=== PATIENT | female | born 1975 | race Caucasian/White ===

== ENCOUNTER → 2017-03-17 | Emergency (ER) | payer OTHER ==
[2017-03-17 15:35] VITALS: BP 135/92; PULSE 92; TEMP 97.5; BMI 25.7
--- NOTE | 2017-03-17 17:33 | PDOC ---
History of Present Illness - General History Source: Patient Exam Limitations: No Limitations - History of Present Illness Initial Comments: 03/17/17 18:13 The patient is a 41-year-old female, with a significant past medical history of seizure disorder (on Keppra 750 mg 2x a day), who presents to the ED today s/p having a seizure at work. Pt was said to be sitting down and unresponsive when she suddenly began shaking. Seizure was witness by coworkers who lowered the pt to the floor and called EMS. Episode lasted 2-3 minutes. Pt denies any bowel or bladder incontinence, new weakness, or recent changes to her medication, but does report experiencing a mild headache. Pts last seizure was four months ago. She reports having a recent EEG that was said to be normal. The patient denies any fever, chills, nausea, vomiting, diarrhea, or abdominal pain. Denies any shortness of breath or chest pain. Neurologist: Dr. David Fatiam <Rena Yao - Last Filed: 03/17/17 18:13> <Beryl Eden - Last Filed: 03/17/17 18:46> - General Chief Complaint: Seizure Stated Complaint: SEIZURE Time Seen by Provider: 03/17/17 15:44 Past History <Rena Yao - Last Filed: 03/17/17 18:13> - Past Medical History Seizures: Yes - Psycho/Social/Smoking Cessation Hx Anxiety: No Suicidal Ideation: No Smoking History: Never smoked Information on smoking cessation initiated: No Hx Alcohol Use: No Drug/Substance Use Hx: No Substance Use Type: None <Beryl Eden - Last Filed: 03/17/17 18:46> - Past Medical History Allergies/Adverse Reactions: Allergies Allergy/AdvReac Type Severity Reaction Status Date / Time No Known Allergies Allergy Verified 10/18/16 15:59 Home Medications: Ambulatory Orders NK [No Known Home Medication] 10/18/16 Review of Systems - Review of Systems Able to Perform ROS?: Yes Comments:: 03/17/17 18:13 GENERAL/CONSTITUTIONAL: No fever or chills. No weakness. HEAD, EYES, EARS, NOSE AND THROAT: No change in vision. No ear pain or discharge. No sore throat. CARDIOVASCULAR: No chest pain or shortness of breath. RESPIRATORY: No cough, wheezing, or hemoptysis. GASTROINTESTINAL: No nausea, vomiting, diarrhea or constipation. GENITOURINARY: No dysuria, frequency, or change in urination. MUSCULOSKELETAL: No joint or muscle swelling or pain. No neck or back pain. SKIN: No rash NEUROLOGIC: No change in strength/sensation. (+)Seizure, headache ENDOCRINE: No increased thirst. No abnormal weight change. HEMATOLOGIC/LYMPHATIC: No anemia, easy bleeding, or history of blood clots. ALLERGIC/IMMUNOLOGIC: No hives or skin allergy. <MaximilianRena - Last Filed: 03/17/17 18:13> *Physical Exam - Vital Signs Last Vital Signs Temp Pulse Resp BP Pulse Ox 97.5 F L 92 H 20 135/92 96 03/17/17 15:32 03/17/17 15:32 03/17/17 15:32 03/17/17 15:32 03/17/17 15:32 - Physical Exam Comments: 03/17/17 18:17 GENERAL: Awake, alert, and fully oriented, in no acute distress HEAD: No signs of trauma EYES: PERRLA, EOMI, sclera anicteric, conjunctiva clear ENT: Auricles normal inspection, hearing grossly normal, nares patent, oropharynx clear without exudates. Moist mucosa. NECK: Normal ROM, supple, no lymphadenopathy, JVD, or masses LUNGS: Breath sounds equal, clear to auscultation bilaterally. No wheezes, and no crackles HEART: Regular rate and rhythm, normal S1 and S2, no murmurs, rubs or gallops ABDOMEN: Soft, nontender, normoactive bowel sounds. No guarding, no rebound. No masses EXTREMITIES: Normal range of motion, no edema. No clubbing or cyanosis. No cords, erythema, or tenderness NEUROLOGICAL: Awake, Alert at baseline. 5/5 strength all four extremities. cranial nerves intact. Sensation intact. SKIN: Warm, Dry, normal turgor, no rashes or lesions noted <MaximilianRena - Last Filed: 03/17/17 18:13> - Vital Signs Last Vital Signs Temp Pulse Resp BP Pulse Ox 97.5 F L 92 H 20 135/92 96 03/17/17 15:32 03/17/17 15:32 03/17/17 15:32 03/17/17 15:32 03/17/17 15:32 <Cirilli,Beryl - Last Filed: 03/17/17 18:46> ED Treatment Course - LABORATORY CBC & Chemistry Diagram: 03/17/17 16:51 03/17/17 16:51 - ADDITIONAL ORDERS Additional order review: Laboratory Results 03/17/17 16:51 Sodium 138 Potassium 4.3 Chloride 102 Carbon Dioxide 26 Anion Gap 10 BUN 11 Creatinine 0.7 Creat Clearance w eGFR > 60 Random Glucose 96 D Calcium 9.0 Total Bilirubin 0.4 D AST 20 D ALT 24 D Alkaline Phosphatase 141 H D Total Protein 7.5 Albumin 3.7 03/17/17 16:51 RBC 4.67 MCV 79.0 L MCHC 31.2 L RDW 14.4 MPV 9.7 Neutrophils % 86.6 H D Lymphocytes % 9.4 D Monocytes % 3.7 L Eosinophils % 0.0 D Basophils % 0.3 <Rena Yao - Last Filed: 03/17/17 18:13> - LABORATORY CBC & Chemistry Diagram: 03/17/17 16:51 03/17/17 16:51 <Beryl Eden - Last Filed: 03/17/17 18:46> Medical Decision Making - Medical Decision Making 03/17/17 17:25 41 yo F with h/o seizure disorder, over last year, follows dr. fatima ( neurologist) here [place] today at work. was witnessed by co workers. pt was altered with staring, followed by generalized shaking. lasted 2 - 3 minutes. did have post ictal period. no bowel or bladder incontinence. no new weakness. mild headache. last seizure 4 mo ago. no recent medication changes. just recently had EEG which was reportedly normal. on exam awake alert NAD. lungs CTAB. no wheeze. no crackle. heart RRR. no mr// g. ab soft NT. nuero awake alert at baseline. 5/5 all four ext. CN intact. sensation intact. plan: likley breakthrough sieuzre. plan r/o electroltye abnormality. devaughn d/w pt nuerologist. <Beryl Eden - Last Filed: 03/17/17 18:46> *DC/Admit/Observation/Transfer - Attestations Scribe Attestion: 03/17/17 18:19 Documentation prepared by Rena Yao, acting as medical editor for Beryl Eden MD. <MaximilianRena - Last Filed: 03/17/17 18:13> - Discharge Dispostion Admit: No <Beryl Eden - Last Filed: 03/17/17 18:46> Diagnosis at time of Disposition: Seizure disorder - Discharge Dispostion Disposition: HOME Condition at time of disposition: Improved - Referrals Referrals: Leo Cadet [Primary Care Provider] - - Patient Instructions Printed Discharge Instructions: Seizure Disorder -- Adult Additional Instructions: increase your keppra to 1000 mg twice daily. follow up with Dr Fatima next week. return for any problems or concerns.
[2017-03-17 17:37] LABS: BASOPHIL 0.3 % (0-2.0); MCH 24.6 pg (25.7-33.7); MCHC 31.2 g/dl (32.0-36.0); MEAN PLT VOLUME 9.7 fl (7.5-11.1); NEUTROPHILS 86.6 % (42.8-82.8); PLATELET COUNT 268 K/MM3 (134-434); RDW 14.4 % (11.6-15.6); WHITE BLOOD COUNT 18.8 K/mm3 (4.0-10.0)
[2017-03-17 18:02] LABS: ALBUMIN 3.7 g/dl (3.4-5.0); ALK PHOS 141 U/L (45-117); ANION GAP 10 (8-16); BILIRUBIN,TOTAL 0.4 mg/dL (0.2-1.0); CO2 26 mmol/L (21-32); COCKROFT - GAULT 118.5665; CREATININE 0.7 mg/dL (0.55-1.02); GLUCOSE,RANDOM 96 mg/dL (74-106); SGOT/AST 20 U/L (15-37); SGPT/ALT 24 U/L (12-78); TOT PROT 7.5 g/dl (6.4-8.2)
== END | disposition home or self-care (01) ==
LOC: JER 15:22
DX: G40.909 Epilepsy, unspecified, not intractable, without status epilepticus (principal)
CPT/HCPCS: 36415; 80053; 85025; 99282-25

== ENCOUNTER → 2024-03-19 | Day surgery (SDC) | payer OTHER ==
[2024-03-08 15:56] VITALS: BMI 28.6
[~2024-03-19] MED LIST: ACETAMINOPHEN INJECTION 100 ML IVPB ONE; BUPIVACAINE HCL/PF 0.25% (2.5MG/ML) 10 ML VIAL ONE; DEXAMETHASONE SOD PHOSPHATE 4 MG/1 ML VIAL ONE; FENTANYL CITRATE/PF 50 MCG/ML VIAL ONE; HEPARIN NA (PORCINE) 5,000 UNITS/ML 1ML VIAL ONE; KETOROLAC TROMETHAMINE 30 MG/1 ML VIAL ONE; LACTATED RINGERS SOLUTION 1,000 ML IV SCH; LIDOCAINE HCL/PF 2% SDV 5ML VIAL ONE; MIDAZOLAM HCL 2 MG/2 ML SINGLE DOSE VIAL ONE; ONDANSETRON 4 MG/2 ML VIAL IVPUSH PRN; ONDANSETRON 4 MG/2 ML VIAL ONE; PROMETHAZINE HCL 25 MG/1 ML VIAL IVPB PRN; PROPOFOL 20 ML ONE; ROCURONIUM BROMIDE 50 MG/5 ML SYRINGE ONE; SEVOFLURANE 250 ML BTL ONE; SUGAMMADEX SODIUM 200 MG/2 ML VIAL ONE; ceFAZolin SODIUM 1 GM VIAL ONE; cefOXitin SODIUM 2 GM VIAL (RESTRICTED TO ID) IVPB ONE; oxyCODONE HCL 5 MG TABLET PO PRN
[2024-03-19] MEDS: cefOXitin SODIUM 2 GM VIAL (RESTRICTED TO ID) IVPB ONE
[2024-03-19] MEDS: ceFAZolin SODIUM 1 GM VIAL IVPB ONE ×2 (08:24)
[2024-03-19] MEDS: BUPIVACAINE HCL/PF 0.25% (2.5MG/ML) 10 ML VIAL IJ ONE ×2 (08:39)
[2024-03-19 13:14] VITALS: RESP 18
[2024-03-19 14:11] VITALS: BP 105/67; PULSE 61; TEMP 97.5
== END | disposition home or self-care (01) ==
LOC: JASU-SURG 04:01
PROVIDERS: ATTEND Surgery
PROC: 8E0W4CZ Robotic Assisted Procedure of Trunk Region, Percutaneous Endoscopic Approach (ICD-10-PCS; 2024-03-19)
PROC: 0WUF4JZ Supplement Abdominal Wall with Synthetic Substitute, Percutaneous Endoscopic Approach (ICD-10-PCS; principal; 2024-03-19 08:00)
DX: K42.9 Umbilical hernia without obstruction or gangrene (principal)
CPT/HCPCS: 49591; S2900; 86850; 86900; 86901; 94760; C1781; J0131; J1644